=== PATIENT | male | born 1985 | race Caucasian/White ===

== ENCOUNTER 2017-06-29 05:32 | Emergency (ER) | payer MEDICAID ==
[2017-06-29 05:39] VITALS: TEMP 98.1
--- NOTE | 2017-06-29 05:54 | EDPHY ---
H & P Stated Complaint: cough, blood, wheezing Time Seen by Provider: 06/29/17 05:42 HPI/ROS: HPI The patient presents with cough productive of bloody sputum. The patient has had a cough for the last 4 days. It has been mostly nonproductive. Then about 1 hour ago he was coughing and noticed a blood tinged sputum. Since then he has had a bloody taste in his mouth though with no continued blood in his sputum. He says he has been wheezing, has felt dysphoric, has had myalgias and generalized malaise. His he feels fevers, though his temperature has been as high only as 99.3. He has rhinorrhea and a sore throat. He reports several sick family members in his household. REVIEW OF SYSTEMS Constitutional: Subjective fever Eyes: No discharge. ENT: Positive for sore throat. Cardiovascular: No chest pain, no palpitations. Respiratory: Positive for cough, no shortness of breath. Gastrointestinal: No abdominal pain, no vomiting. Genitourinary: No hematuria. Musculoskeletal: No back pain. Skin: No rashes. Neurological: No headache. PMHx: "Emphysema "based on incentive spirometry had an urgent care, mental health Soc Hx: Smokes 10 cigarettes a day PHYSICAL General Appearance: Alert, no distress Eyes: Pupils equal and round no pallor or injection ENT, Mouth: Mucous membranes moist Respiratory: There are no retractions, lungs are clear to auscultation Cardiovascular: Regular rate and rhythm Gastrointestinal: Abdomen is soft and non-tender, no masses, bowel sounds normal Neurological: A&O, moves all extremities Skin: Warm and dry, no rashes Musculoskeletal: Neck is supple non tender Extremities: symmetrical, full range of motion Psychiatric: Patient is oriented X 3, there is no agitation Source: Patient Exam Limitations: No limitations - Personal History Current Tetanus Diphtheria and Acellular Pertussis (TDAP): Unsure - Medical/Surgical History Hx Asthma: No Hx Chronic Respiratory Disease: No Hx Diabetes: No Hx Cardiac Disease: No Hx Renal Disease: No Hx Cirrhosis: No Hx Alcoholism: No Hx HIV/AIDS: No Hx Splenectomy or Spleen Trauma: No Other PMH: bipolar, ptsd, depresion, anxiety adhd, reactive attachement disorder , emphysema - Social History Smoking Status: Heavy smoker Constitutional: Initial Vital Signs Temperature (C) 36.7 C 06/29/17 05:35 Heart Rate 91 06/29/17 05:35 Respiratory Rate 20 06/29/17 05:35 Blood Pressure 146/106 H 06/29/17 05:35 O2 Sat (%) 96 06/29/17 05:35 O2 Delivery Mode Room Air Allergies/Adverse Reactions: carbamazepine [From Tegretol] Allergy (Intermediate, Verified 02/25/11 19:42) DIZZY & SEE DOUBLE coconut Allergy (Verified 06/29/17 05:39) METAL Allergy (Unknown, Uncoded 12/29/11 23:49) Home Medications: Medication Instructions Recorded M[facility] 12/29/11 Doxycycline Hyclate [Doxycycline] 100 mg PO BID #20 cap 12/30/11 oxyCODONE/APAP 5/325 [Percocet 1 - 2 tab PO Q4-6PRN PRN #15 tab 12/30/11 5/325] Medical Decision Making - Diagnostics Imaging Results: Chest x-ray two view shows no cardiomegaly, no infiltrate, no effusion, interpreted by me, radiology interpretation is pending Differential Diagnosis: 32-year-old male smoker presents with cough, sore throat, rhinorrhea, malaise, subjective fevers for the last 4 days, with a single episode of cough productive of bloody sputum with no ongoing blood. On exam, he is well- appearing with normal vital signs. Lungs are clear. Differential diagnosis includes bronchitis, pneumonia, influenza, would also consider TB however symptoms seem quite acute, he does not have any weight loss. He does not have any risk factors for tuberculosis and I am aware of. Bronchiectasis is a consideration as well. Pulmonary embolism is a consideration, however the patient does not have any chest pain, hypoxia, tachycardia, leg swelling. Rapid influenza in the emergency department was positive for influenza A. Given that he has had 4 days of symptoms, I do not think he would benefit from Tamiflu. I have discussed this with him. I will discharge him with albuterol inhaler with spacer. [facility] if he is not better in the next few days. - Data Points Medications Given: Discontinued Medications Albuterol Sulfate (Proventil Inh Prepack) 1 mdi URIEL RODRIGUEZ ONE Stop: 06/29/17 06:52 Last Admin: 06/29/17 06:56 Dose: 1 mdi Departure - Departure Disposition: Home, Routine, Self-Care Clinical Impression: Coughing up blood, Influenza A Condition: Good Instructions: Albuterol (By breathing), Influenza (ED) Additional Instructions: Please return to the emergency department if you are worse in any way. Referrals: [facility],. [Clinic] - As per Instructions
[2017-06-29] MEDS ORDERED: ALBUTEROL INH PREPACK MDI TAKEHOME ONE (06:51)
[2017-06-29 07:07] VITALS: BP 153/106; PULSE 90; RESP 1; O2SAT 93
== END 2017-06-29 07:07 | disposition home or self-care (01) ==
DX: R04.2 Hemoptysis (principal); J10.1 Influenza due to other identified influenza virus with other respiratory manifestations; F17.210 Nicotine dependence, cigarettes, uncomplicated

== ENCOUNTER 2018-05-23 23:51 | Emergency (ER) | payer MEDICAID ==
[2018-05-24] MEDS ORDERED: IPRATROPIUM/ALBUTEROL 3 ML DEYVIAL IH ONE (00:12)
[2018-05-24] MEDS ORDERED: IPRATROPIUM/ALBUTEROL 3 ML DEYVIAL ONE (00:29)
[2018-05-24] MEDS ORDERED: DEXAMETHASONE 4 MG TAB PO ONE (01:07)
[2018-05-24] MEDS ORDERED: ALBUTEROL INH PREPACK MDI TAKEHOME ONE (01:18)
--- NOTE | 2018-05-24 01:18 | EDPHY ---
H & P Stated Complaint: wheezing and sinus congestion out of inhaler Time Seen by Provider: 05/24/18 00:09 HPI/ROS: Chief complaint: Wheezing History of present illness: This is a 32-year-old male who reports a history of emphysema from smoking who presents to the emergency department for wheezing. He reports increased wheezing over the last few days. He has intermittently used an inhaler in the past tenderness requesting a new 1. He is not on any chronic medications. He denies other associated signs or symptoms including no fever, no cough, no cold symptoms, no dyspnea. He currently smokes. Review of systems: A 10 point review of systems was obtained and other than described above was negative - Personal History Current Tetanus/Diphtheria Vaccine: Unsure Current Tetanus Diphtheria and Acellular Pertussis (TDAP): Unsure - Medical/Surgical History Hx Asthma: No Hx Chronic Respiratory Disease: Yes Hx Diabetes: No Hx Cardiac Disease: No Hx Renal Disease: No Hx Cirrhosis: No Hx Alcoholism: No Hx HIV/AIDS: No Hx Splenectomy or Spleen Trauma: No Other PMH: bipolar, ptsd, depresion, anxiety adhd, reactive attachement disorder , emphysema - Social History Smoking Status: Heavy smoker - Physical Exam Exam: General Appearance: Alert, no distress. Eyes: Pupils equal and round no pallor or injection. ENT, Mouth: Mucous membranes moist. Respiratory: He is speaking in full sentences. No use of accessory muscles. Mild expiratory wheezing. No rhonchi or rales. Cardiovascular: Regular rate and rhythm. Neurological: Alert, strength and sensation intact and symmetrical. Skin: Warm and dry, no rashes. Musculoskeletal: Neck is supple non tender. Extremities are symmetrical, full range of motion. Psychiatric: Patient is oriented X 3, there is no agitation. Constitutional: Initial Vital Signs Temperature (C) 36.6 C 05/23/18 23:56 Heart Rate 87 05/23/18 23:56 Respiratory Rate 16 05/23/18 23:56 Blood Pressure 143/109 H 05/23/18 23:56 O2 Sat (%) 96 05/23/18 23:56 O2 Delivery Mode Room Air Allergies/Adverse Reactions: carbamazepine [From Tegretol] Allergy (Intermediate, Verified 02/25/11 19:42) DIZZY & SEE DOUBLE coconut Allergy (Verified 06/29/17 05:39) shellfish derived Allergy (Verified 05/23/18 23:59) METAL Allergy (Unknown, Uncoded 12/29/11 23:49) Home Medications: Medication Instructions Recorded Medical Sanjuana 05/24/18 Medical Decision Making - Diagnostics Imaging: I viewed and interpreted images myself ED Course/Re-evaluation: Patient seen under the supervision of my secondary supervising physician Dr. Cyrus Alcala. Patient presents to the emergency department for wheezing. Mild expiratory wheezing is noted. No respiratory distress. Vital signs are stable. Chest x-ray obtained and largely unremarkable. He has been treated with a DuoNeb with improvement in symptoms. I will give him a single dose of Decadron. He will be discharged home with an inhaler and spacer. Home care is discussed. He is to follow up with her primary care doctor for recheck. Return precautions are given. The patient voiced understanding and agreement with plan. Differential Diagnosis: Included but not limited to infectious process such as bronchitis or pneumonia, COPD exacerbation, reactive airway disease - Data Points Medications Given: Discontinued Medications Albuterol Sulfate (Proventil Inh Prepack) 1 mdi TAKEHOME EDNOW ONE Stop: 05/24/18 01:19 Last Admin: 05/24/18 01:55 Dose: 1 mdi Albuterol/Ipratropium (Duoneb) 3 ml IH EDNOW ONE Stop: 05/24/18 00:13 Last Admin: 05/24/18 00:16 Dose: 3 ml Dexamethasone (Decadron) 10 mg PO EDNOW ONE Stop: 05/24/18 01:08 Last Admin: 05/24/18 01:49 Dose: 10 mg Departure - Departure Disposition: Home, Routine, Self-Care Clinical Impression: Chronic obstructive pulmonary disease with acute exacerbation Condition: Good Instructions: COPD (Chronic Obstructive Pulmonary Disease) (ED) Additional Instructions: Follow-up with a primary care doctor for continued evaluation and care If symptoms worsen or new symptoms develop return to the emergency Referrals: NONE *PRIMARY CARE P,. [Primary Care Provider] - As per Instructions [facility],. [Clinic] - As per Instructions
[2018-05-24 01:58] VITALS: BP 141/91
== END 2018-05-24 01:56 | disposition home or self-care (01) ==
DX: J44.1 Chronic obstructive pulmonary disease with (acute) exacerbation (principal); Z72.0 Tobacco use

== ENCOUNTER 2018-06-12 11:07 | Emergency (ER) | payer MEDICAID ==
--- NOTE | 2018-06-12 12:00 | EDPHY ---
H & P Stated Complaint: 3D of L earpain and throat pain/diff swallowing Time Seen by Provider: 06/12/18 11:28 HPI/ROS: CHIEF COMPLAINT: Otalgia, sore throat x3 days HISTORY OF PRESENT ILLNESS: 33-year-old immunocompetent male history of bipolar disorder complaining 3 days of sore throat, left otalgia, no otorrhea, hoarse voice. No headache. No nausea or vomiting. No flu-like symptoms. No chest pain. No dyspnea. No abdominal pain. No rash. PRIMARY CARE PROVIDER: REVIEW OF SYSTEMS: 10 systems reviewed and negative with the exception of the elements mentioned in the history of present illness PAST MEDICAL & SURGICAL HISTORY: Bipolar disorder SOCIAL HISTORY: Denies illicit drug or alcohol use PHYSICAL EXAM (Prior to examination, patient consented to physical exam, hands were washed and my usual and customary physical exam procedures followed) 1) GENERAL: Well-developed, well-nourished, alert and oriented. Appears nontoxic 2) HEAD: Normocephalic, atraumatic 3) HEENT: Pupils equal, round, reactive to light bilaterally. Sclera anicteric. Oropharynx: Bilateral tonsils are symmetrically enlarged with white exudate. No pointing of the uvula. No trismus no drooling. No hot potato voice. Moist Mucous membranes. Ears bilaterally with normal tympanic membranes. No signs of otitis media. No otorrhea. 4) NECK: Full range of motion, no meningeal signs. Positive tender adenopathy submandibular region. 5) LUNGS: Clear auscultation bilaterally, no wheezes, no rhonchi, no retractions. 6) HEART: Regular rate and rhythm, no murmur, no heave, no gallop. 7) ABDOMEN: No guarding, no rebound, no focal tenderness, negative McBurney's, negative Mcdonald's, negative Rovsing's, negative peritoneal sign, 8) MUSCULOSKELETAL: Moving all extremities, no focal areas of tenderness, no obvious trauma. No peripheral edema or discoloration. 9) BACK: No CVA tenderness, no midline vertebral tenderness, no fluctuance, no step-off, no obvious trauma, no visual or palpable abnormality. 10) SKIN: No rash, no petechiae. 11) Psychiatric: Patient is oriented X 3, there is no agitation. DIFFERENTIAL DIAGNOSIS: In no particular order, my differential diagnosis includes, but is not limited to, strep pharyngitis, viral pharyngitis, peritonsillar abscess, retropharyngeal abscess or plegmon, mononucleosis, meningitis, Lemierre syndrome. - Personal History Current Tetanus/Diphtheria Vaccine: Yes - Medical/Surgical History Hx Asthma: No Hx Chronic Respiratory Disease: Yes Hx Diabetes: No Hx Cardiac Disease: No Hx Renal Disease: No Hx Cirrhosis: No Hx Alcoholism: No Hx HIV/AIDS: No Hx Splenectomy or Spleen Trauma: No Other PMH: bipolar, ptsd, depresion, anxiety adhd, reactive attachement disorder , emphysema - Social History Smoking Status: Heavy smoker Constitutional: Initial Vital Signs Temperature (C) 37.0 C 06/12/18 11:18 Heart Rate 81 06/12/18 11:18 Respiratory Rate 16 06/12/18 11:18 Blood Pressure 126/88 H 06/12/18 11:18 O2 Sat (%) 98 06/12/18 11:18 O2 Delivery Mode Room Air Allergies/Adverse Reactions: carbamazepine [From Tegretol] Allergy (Intermediate, Verified 06/12/18 11:16) DIZZY & SEE DOUBLE coconut Allergy (Verified 06/12/18 11:16) shellfish derived Allergy (Verified 06/12/18 11:16) METAL Allergy (Unknown, Uncoded 12/29/11 23:49) Home Medications: Medication Instructions Recorded Medical Sanjuana 05/24/18 Penicillin V Potassium [Pen Vk] 500 mg PO Q6 10 Days tab 06/12/18 Medical Decision Making ED Course/Re-evaluation: Doubt peritonsillar abscess, doubt Lemierre syndrome. Positive strep testing in the ER. Will hold on steroids given his history of bipolar disorder. Will initiate Pen-VK treatment. Usual and customary pharyngitis precautions instructions provided. I saw this patient independently based on established practice protocols. Care of patient under supervision of secondary supervising physician Dr Murrieta . - Data Points Laboratory Results: 06/12/18 11:20 Group A Strep Screen POSITIVE H (NEGATIVE) Departure - Departure Disposition: Home, Routine, Self-Care Clinical Impression: Acute streptococcal pharyngitis Condition: Good Instructions: Strep Throat (ED) Additional Instructions: Return to the ER immediately if you cannot swallow, have drooling, fevers, neck stiffness, cannot open your jaw, or any other symptoms that concern you. Referrals: Kadi Cruz MD [Medical Doctor] - As per Instructions Prescriptions: Penicillin V Potassium [Pen Vk] 500 mg PO Q6 10 Days tab
[2018-06-12 12:06] VITALS: BP 125/78
== END 2018-06-12 12:20 | disposition home or self-care (01) ==
DX: J02.0 Streptococcal pharyngitis (principal); H92.09 Otalgia, unspecified ear; F31.9 Bipolar disorder, unspecified; F17.200 Nicotine dependence, unspecified, uncomplicated

== ENCOUNTER 2018-08-26 16:31 | Emergency (ER) | payer MEDICAID ==
[2018-08-26 16:39] VITALS: BP 133/90
--- NOTE | 2018-08-26 17:00 | EDPHY ---
General Time Seen by Provider: 08/26/18 16:42 Narrative: CLINICAL IMPRESSION: Strep pharyngitis ASSESSMENT/PLAN: 33-year-old male presents to the emergency department with 1 day of sore throat and dysphagia. He is tolerating secretions well, no drooling, vital signs stable, no clinical signs of exudate of tonsillitis, peritonsillar abscess, retropharyngeal abscess, uvulitis, Chris's angina, or epiglottitis. Rapid strep positive. Treatment options discussed and patient has elected to be treated with Bicillin which was administered in the ED. Encouraged PCP follow- up in 24 hr. Warning signs return to ED sooner outlined discharge. DIFFERENTIAL DX: Differential includes but not limited to viral pharyngitis, exudative tonsillitis, peritonsillar abscess, retropharyngeal abscess, epiglottitis, Chris's angina, uvulitis ED PROCEDURES: See lab and/or imaging results below ED COURSE: Rapid strep positive. Results discussed with patient. Options for treatment discussed. Patient has elected for Bicillin. CHIEF COMPLAINT: Sore throat HPI: 33-year-old male presents to the emergency department with a complaint of a bump on the back of his throat that is making it painful for him to swallow. He reports associated chills but no documented fever. He is able to tolerate his secretions and has been drinking water. He has not taken anything for his symptoms. He reports having strep throat several months ago, completed a course of antibiotics and symptoms improved. He states this feels the same. No neck swelling or difficulty moving the neck. PAST MEDICAL HISTORY: Bipolar, depression, anxiety, PTSD, emphysema See triage summary and nurse notes for addition applicable history Pertinent Past Surgical History: None reported Family History: Noncontributory Social History: Smokes marijuana REVIEW OF SYSTEMS: A full 10 point review of systems was negative except for those mentioned in HPI. PHYSICAL EXAM: General Appearance: Alert, oriented, appropriate, cooperative, NAD, well hydrated, non-toxic appearing, VSS, no hypoxia, tolerating secretions, no drooling. HEENT: TMs are clear bilaterally no perforation or FB, no injection, no evidence of serous or mucopurulent otitis. Oropharynx clear erythema noted, no exudates, no tonsillar hypertrophy or asymmetry. Dentition without abnormality. Eyes: PERRLA, no acute vision change, nystagmus, swelling, discharge, pain or photosensitivity. Conjunctiva pink, no pallor or injection Neck: Supple, nontender, no lymphadenopathy, no midline pain, FROM, no meningismus no submental swelling or evidence of Chris's.. Respiratory: There are no retractions, lungs are clear to auscultation. Cardiac: Regular rate and rhythm, no murmurs or gallops. Skin: Warm, dry, no rashes, no nodules on palpation. MEDICAL DECISION MAKING: Patient was seen independently. Secondary supervising physician at time of evaluation was: Dr. Fonseca . Diagnosis: Strep pharyngitis . New, requires workup Summary: See Assessment and Plan for summary of ED visit Clinical lab tests: ordered / reviewed. Patient Progress: Stable. - History Smoking Status: Former smoker - Objective Vital Signs: Initial Vital Signs Temperature (C) 36.6 C 08/26/18 16:35 Heart Rate 95 08/26/18 16:35 Respiratory Rate 18 08/26/18 16:35 Blood Pressure 133/90 H 08/26/18 16:35 O2 Sat (%) 96 08/26/18 16:35 O2 Delivery Mode Room Air Allergies/Adverse Reactions: carbamazepine [From Tegretol] Allergy (Intermediate, Verified 06/12/18 11:16) DIZZY & SEE DOUBLE coconut Allergy (Verified 06/12/18 11:16) shellfish derived Allergy (Verified 06/12/18 11:16) METAL Allergy (Unknown, Uncoded 12/29/11 23:49) Home Medications: Medication Instructions Recorded Medical Sanjuana 05/24/18 Laboratory Results: 08/26/18 16:43 Group A Strep Screen POSITIVE H (NEGATIVE) Departure - Departure Disposition: Home, Routine, Self-Care Clinical Impression: Strep tonsillitis Condition: Good Instructions: Strep Throat (ED) Additional Instructions: DISCHARGE INSTRUCTIONS FROM YOUR DOCTOR Thank you for visiting our emergency department today. Please keep in mind that discharge from the emergency department does not mean that there is nothing wrong - it simply means that we have not identified an emergency condition that requires further evaluation or treatment in the hospital. You should always plan to follow up with primary care for re-evaluation of your condition in the next 2-3 days. If you have been referred to a specialist, please call as soon as possible (today or tomorrow) to schedule your follow up appointment at the appropriate time. YOUR STREP TEST WAS POSITIVE. YOU ELECTED TO BE TREATED WITH BICILLIN TODAY AND YOUR ONE TIME INJECTION WAS GIVEN IN THE ED. PLEASE FOLLOWUP WITH YOUR PRIMARY CARE DOCTOR IN THE NEXT 1-2 DAYS. IF YOU DO NOT HAVE ONE, A REFERRAL WAS GIVEN. STAY WELL HYDRATED, USE IBUPROFEN 600MG WITH FOOD AND LARGE GLASS OF WATER IF NEEDED FOR PAIN. RETURN TO ER FOR INABILITY TO SWALLOW YOUR OWN SALIVA, WORSENING THROAT PAIN/SWELLING, TONGUE OR NECK SWELLING, HIGH FEVERS OR ANY OTHER CONCERNS. People present with illnesses and injuries in different ways, and it is always possible that we have missed something. You may always return for re-evaluation if symptoms worsen or if they are not improving or if you develop new/different symptoms. Again, thank you for choosing our emergency department. We hope that you feel better. Referrals: NONE *PRIMARY CARE P,. [Primary Care Provider] - As per Instructions Devang Feliciano MD [[facility] Primary Care Provider] - 1-2 days without fail
[2018-08-26] MEDS ORDERED: BICILLIN C-R 1200000 UNIT/2 ML SYRINGE IM ONE (17:19)
== END 2018-08-26 17:40 | disposition home or self-care (01) ==
DX: J03.00 Acute streptococcal tonsillitis, unspecified (principal); F31.9 Bipolar disorder, unspecified; F41.9 Anxiety disorder, unspecified; F43.10 Post-traumatic stress disorder, unspecified; J43.9 Emphysema, unspecified; Z87.891 Personal history of nicotine dependence
CPT/HCPCS: J0558